=== PATIENT | male | born 1985 | race Two or more races ===

== ENCOUNTER 2020-10-06 13:55 | Emergency (ER) | payer OTHER ==
[2020-10-06] MEDS ORDERED: Diphtheria,Pertussis(Acell),Tetanus Vaccine 0.5 ML Syringe IM ONE (14:26)
--- NOTE | 2020-10-06 14:47 | EDM.PDOC ---
ED HPI GENERAL MEDICAL PROBLEM - General Chief Complaint: Upper Extremity Injury/Pain Stated Complaint: LEFT HAND LACERATION Time Seen by Provider: 10/06/20 14:25 Source of Information: Reports: Patient, RN, RN Notes Reviewed History Limitations: Reports: No Limitations - History of Present Illness INITIAL COMMENTS - FREE TEXT/NARRATIVE: Patient presents to the ED via personal vehicle with complaints of injury to his left hand. 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 He reports he cut his left, lateral hand about one hour ago while at work, slicing meat. He attempted to apply pressure to the area, but was unable to appropriately stop the bleeding. He is unsure of his TDap status, but does not remember receiving any vaccinations within the past 10 years. He denies loss of motor or sensory function to the hand. Left Hand Pain Score (Numeric/FACES): 3 - Related Data Allergies Allergy/AdvReac Type Severity Reaction Status Date / Time No Known Allergies Allergy Verified 10/06/20 14:14 Home Meds: Home Meds . [No Known Home Meds] 10/06/20 [History] Past Medical History - Past Health History Medical/Surgical History: Denies Medical/Surgical History Social & Family History - Tobacco Use Tobacco Use Status *Q: Current Status Unknown - Caffeine Use Caffeine Use: Reports: None - Recreational Drug Use Recreational Drug Use: No Review of Systems - Review of Systems Review Of Systems: Comprehensive ROS is negative, except as noted in HPI. ED EXAM, GENERAL - Physical Exam Exam: See Below Exam Limited By: Language Barrier (Patients deering language is [place]raini) General Appearance: Alert, WD/WN, No Apparent Distress Peripheral Pulses: 2+: Radial (L), Radial (R) Extremities: Normal Inspection, Normal Range of Motion, Non-Tender, No Pedal Edema, Normal Capillary Refill Neurological: Alert, Oriented, CN II-XII Intact, Normal Cognition, Normal Gait, Normal Reflexes, No Motor/Sensory Deficits Psychiatric: Normal Affect, Normal Mood Skin Exam: Warm, Dry, Normal Color, No Rash, Wound/Incision (3x2cm abrased laceration to left lateral hand; Clean) Course - Vital Signs Last Recorded V/S: Last Vital Signs Temp 97.3 F 10/06/20 14:09 Pulse 91 10/06/20 14:09 Resp 14 10/06/20 14:09 BP 153/104 H 10/06/20 14:09 Pulse Ox 97 10/06/20 14:09 - Orders/Labs/Meds Orders: Active Orders 24 hr Category Date Time Status Vaccines to be Administered [RC] PER UNIT ROUTINE Care 10/06/20 14:26 Active Meds: Medications Discontinued Medications Generic Name Dose Route Start Last Admin Trade Name León PRN Reason Stop Dose Admin Diphtheria/Tetanus/Acell Pertussis 0.5 ml 10/06/20 14:26 10/06/20 14:41 Boostrix IM 10/06/20 14:27 0.5 ml .ONCE ONE Administration - Re-Assessments/Exams Free Text/Narrative Re-Assessment/Exam: 10/06/20 Given nature or laceration, unable to suture or dermabond. Will apply pressure bandage. Will administer TDap. Departure - Departure Time of Disposition: 14:58 Disposition: Home, Self-Care 01 Condition: Good Clinical Impression: Laceration of left hand Qualifiers: Encounter type: initial encounter Foreign body presence: without foreign body Qualified Code(s): S61.412A - Laceration without foreign body of left hand, in itial encounter - Discharge Information *PRESCRIPTION DRUG MONITORING PROGRAM REVIEWED*: Not Applicable *COPY OF PRESCRIPTION DRUG MONITORING REPORT IN PATIENT ANJANA: Not Applicable Instructions: Laceration Care, Adult, [id number] Additional Instructions: Keep wound clean and dry. May remove/change bandage daily and as needed. May take ibuprofen (Motrin/Advil) 400mg every 6 hours for pain. May take acetaminophen (Tylenol) 650mg every six hours for pain. You may stagger these doses so you are taking a medication every three hours. Return to primary care provider, or emergency department, with any fever, shaking chills, worsening pain, warmth, or swelling to the surrounding area. Sepsis Event Note (ED) - Evaluation Sepsis Screening Result: No Definite Risk - Focused Exam Vital Signs: Vital Signs Temp Pulse Resp BP Pulse Ox 10/06/20 14:09 97.3 F 91 14 153/104 H 97 - My Orders Last 24 Hours: My Active Orders 10/06/20 14:26 Vaccines to be Administered [RC] PER UNIT ROUTINE - Assessment/Plan Last 24 Hours: My Active Orders 10/06/20 14:26 Vaccines to be Administered [RC] PER UNIT ROUTINE
== END 2020-10-06 15:09 | disposition home or self-care (01) ==
LOC: DL.ED 13:55
DX: S61.412A Laceration without foreign body of left hand, initial encounter (principal); Z23 Encounter for immunization; X99.1XXA Assault by knife, initial encounter; Y93.G3 Activity, cooking and baking; Y99.0 Civilian activity done for income or pay
CPT/HCPCS: 90471; 90715; 99282